=== PATIENT | male | born 1965 | race American Indian/Alaskan Native ===

== ENCOUNTER 2019-08-30 01:55 | Emergency (ER) | payer SELFPAY ==
[2019-08-30] MEDS ORDERED: IBUPROFEN 600 MG TAB PO ONE (04:29)
[2019-08-30 06:56] VITALS: BP 142/64
--- NOTE | 2019-08-30 08:30 | Emergency Department Report ---
Chief Complaint: Back Pain/Injury Stated Complaint: EXTREME BACK PAIN Time Seen by Provider: 08/30/19 08:12 - HPI History of Present Illness: 54-year-old -[place] male presents to the emergency room complaining of lower back pain that shot worse with movement. Patient states he was walking lifting heavy objects at the time. Patient denies any trauma. She reports is taking Aleve. He has a primary care provider Dr. Flor nevarez and [place]. He denies any bowel or urine incontinence. - Exam Vital Signs: Vital Signs 08/30/19 08/30/19 02:00 06:54 Temperature 98.2 F 98.3 F Pulse Rate 79 53 L Respiratory 18 18 Rate Blood Pressure 132/78 142/64 O2 Sat by Pulse 100 99 Oximetry Physical Exam: Patient's alert and oriented 3 no acute distress nontoxic in appearance Back: Full range of motion tenderness at the right sacral notch no vertebral tenderness. Neural ambulatory without difficulties. MSE screening note: Focused history and physical exam performed. Due to findings the following was ordered: ED Medical Decision Making - Medical Decision Making 54-year-old -[place] male presents to the emergency room complaining of lower back pain that shot worse with movement. Patient states he was walking lifting heavy objects at the time. Patient denies any trauma. She reports is taking Aleve. He has a primary care provider Dr. Ernst in [place]. He denies any bowel or urine incontinence. ED Disposition for MSE Clinical Impression: Sciatica Disposition: Z-07 MED SCREENING EXAM-LEFT Is pt being admited?: No Does the pt Need Aspirin: No Condition: Stable Additional Instructions: Recommend ibuprofen 600 mg which is [id number] ibuprofens. Muscle yrag-hom-fmbvpne moist heat. An exercise to the back. Follow-up with your primary care provider. Referrals: PRIMARY CARE, [Primary Care Provider] - 3-5 Days Forms: Work/School Release Form(ED)
== END 2019-08-30 08:43 | disposition left against medical advice (07) ==
LOC: ED 01:55
DX: M54.40 Lumbago with sciatica, unspecified side (principal)